=== PATIENT | female | born 1980 | race Caucasian/White ===

== ENCOUNTER → 2020-02-07 11:11 | Outpatient (BNVA) | payer OTHER, SELFPAY | PROVIDERS: Family Provider Family Medicine; Visit Provider Nurse Practitioner Women's Health | DX: Z01.419 Encounter for gynecological examination (general) (routine) without abnormal findings (principal); F41.9 Anxiety disorder, unspecified; Z13.0 Encounter for screening for diseases of the blood and blood-forming organs and certain disorders involving the immune mechanism | CPT/HCPCS: 85025 ==

== ENCOUNTER 2020-03-22 07:16 | Outpatient (CLI) | payer OTHER, SELFPAY ==
--- NOTE | 2020-03-22 07:38 | MM_ITS ---
WS: [id number] Bilateral screening digital mammogram, 03/22/2020 Clinical Data: SCREENING Comparison: 12/09/2018, 12/11/2014. Findings: The breast parenchymal pattern shows heterogeneous density in the augmentation mammoplasty implants a re intact. No spiculated masses or clustered calcifications are seen. There are no secondary signs of carcinoma. MM/[place] [id number] Impression: 1. Negative bilateral mammogram unchanged. 2. Recommend annual screening mammograms. BIRADS: 2-Benign FOLLOW UP: 1 Year Follow-up The CAD billing checker was used.
== END 2020-03-22 07:17 | disposition home or self-care (01) ==
LOC: RADSHAW 07:19
PROVIDERS: PCP Family Medicine; Visit Provider Nurse Practitioner Women's Health
DX: Z12.31 Encounter for screening mammogram for malignant neoplasm of breast (principal)
CPT/HCPCS: 77067

== ENCOUNTER → 2020-04-06 08:13 | Outpatient (BNVA) | payer OTHER, SELFPAY | PROVIDERS: PCP Family Medicine; Visit Provider Nurse Practitioner Women's Health | DX: Z13.29 Encounter for screening for other suspected endocrine disorder | CPT/HCPCS: 84443 ==

== ENCOUNTER → 2021-02-08 10:01 | Outpatient (BNVA) | payer OTHER, SELFPAY | PROVIDERS: PCP Family Medicine; Visit Provider Nurse Practitioner Women's Health | DX: Z01.419 Encounter for gynecological examination (general) (routine) without abnormal findings (principal); Z13.0 Encounter for screening for diseases of the blood and blood-forming organs and certain disorders involving the immune mechanism; Z11.3 Encounter for screening for infections with a predominantly sexual mode of transmission; Z13.1 Encounter for screening for diabetes mellitus; Z13.228 Encounter for screening for other metabolic disorders; Z12.39 Encounter for other screening for malignant neoplasm of breast | CPT/HCPCS: 80053; 83036; 85025; 86592; 86803; 87491; 87591; 87661; 87806; 88175 ==

== ENCOUNTER 2021-03-25 11:09 | Outpatient (CLI) | payer OTHER, SELFPAY ==
--- NOTE | 2021-03-25 11:30 | MM_ITS ---
WS: [id number] BILATERAL SCREENING MAMMOGRAM WITH YAN DISPLACEMENT VIEWS. CAD PERFORMED. HISTORY: Z12.39 - Encounter for other screening for malignant neoplasm COMPARISON: 03/22/2020 Bilateral craniocaudal and mediolateral like views are performed. Yan displacement views in CC and MLO projection also performed. Breasts composition: The breasts are heterogeneously dense, which may obscure small masses. No masses or calcifications. Retropectoral implants are intact. MM/[place] [id number] IMPRESSION: BI-RADS: 2-Benign FOLLOW-UP: 1 Year Follow-up
== END 2021-03-25 11:10 | disposition home or self-care (01) ==
LOC: RADSHAW 11:12
PROVIDERS: PCP Family Medicine; Visit Provider Nurse Practitioner Women's Health
DX: Z12.31 Encounter for screening mammogram for malignant neoplasm of breast (principal)
CPT/HCPCS: 77067

== ENCOUNTER → 2022-05-27 09:06 | Outpatient (BNVA) | payer OTHER, SELFPAY | PROVIDERS: PCP Family Medicine; Visit Provider Nurse Practitioner Women's Health | DX: Z01.419 Encounter for gynecological examination (general) (routine) without abnormal findings (principal); R00.2 Palpitations; Z12.4 Encounter for screening for malignant neoplasm of cervix; Z13.0 Encounter for screening for diseases of the blood and blood-forming organs and certain disorders involving the immune mechanism; Z13.228 Encounter for screening for other metabolic disorders; Z13.220 Encounter for screening for lipoid disorders; Z13.1 Encounter for screening for diabetes mellitus | CPT/HCPCS: 80053; 80061; 83036; 84439; 84443; 85025; 87624 ==

== ENCOUNTER 2022-07-10 11:50 | Outpatient (CLI) | payer OTHER, SELFPAY ==
--- NOTE | 2022-07-10 12:01 | MM_ITS ---
WS: [id number] BILATERAL 3D TOMOSYNTHESIS DIGITAL SCREENING MAMMOGRAM WITH CAD CLINICAL INFORMATION: Z12.39 - Encounter for other screening for malignant neop... HISTORY: Screening mammogram. No current complaints. COMPARISON: March 25, 2021 TECHNIQUE: Bilateral CC and MLO. FINDINGS: Stable bilateral retropectoral breast implants. The breast are composed of extremely dense tissue, which can limit the detection of small underlying mass lesions. No suspicious focal mass, asymmetry, calcifications, or architectural distortion. No ev idence of malignancy. Vascular calcification. MM/[place] [id number] IMPRESSION: BI-RADS: 2-Benign FOLLOW UP: 1 Year Follow-up Recommend return to annual screening mammography.
== END 2022-07-10 11:51 | disposition home or self-care (01) ==
LOC: RAD 11:51
PROVIDERS: PCP Family Medicine; Visit Provider Nurse Practitioner Women's Health
DX: Z12.31 Encounter for screening mammogram for malignant neoplasm of breast (principal)
CPT/HCPCS: 77063; 77067

== ENCOUNTER 2022-12-09 06:54 | Outpatient (CLI) | payer OTHER, SELFPAY ==
--- NOTE | 2022-12-09 07:00 | USCV_ITS ---
Bernarda Kerr Age: 42 Gender: F : 1980 Exam Date: 12/09/2022 07:09 Ordering Phys: Chelsie Gambino MD ([email or web address]) Technologist: CT Exam Location: [facility] Indication: murmur BP: 116 / 76 HR: 72 Rhythm: Sinus Technical Quality: Adequate MEASUREMENTS (Male / Female) Normal Values 2D ECHO LV Diastolic Diameter PLAX 4.7 cm 4.2 - 5.9 / 3.9 - 5.3 cm LV Systolic Diameter PLAX 3.1 cm IVS Diastolic Thickness 0.7 cm 0.6 - 1.0 / 0.6 - 0.9 cm IVS Systolic Thickness 0.8 cm LVPW Diastolic Thickness 0.8 cm 0.6 - 1.0 / 0.6 - 0.9 cm LVPW Systolic Thickness 1.6 cm LV Ejection Fraction 2D Teich 62.5 % LV Ejection Fraction MOD 2C 55.8 % LV Ejection Fraction 2C AL 57.4 % LA Diameter 3.2 cm Aorta at Sinotubular Diameter 2.6 cm IVC Diameter 2.0 cm M-MODE Aortic Annulus Diameter 2.9 cm LA Ao Ratio MM 1.2 MV E Point Septal Separation 0.3 cm DOPPLER AV Peak Velocity 139.0 cm/s LVOT Peak Velocity 77.3 cm/s MV Peak Velocity 108.0 cm/s MV Area PHT 3.0 cm squared Mitral E to A Ratio 2.2 MV E' Velocity 56.5 cm/s Mitral E to MV E' Ratio 5.2 Mitral E to LV E' Lateral Ratio 4.6 Mitral E to LV E' Septal Ratio 6.0 TR Peak Velocity 99.0 cm/s TR Peak Gradient 3.9 mmHg TV Peak E Velocity 76.0 cm/s Right Atrial Pressure 3.0 mmHg Pulmonary Artery Systolic Pressu 6.9 mmHg PV Peak Velocity 100.0 cm/s FINDINGS Left Ventricle Normal left ventricular size and systolic function, EF 55 %. No regional wall motion abnormalities. Right Ventricle The right ventricle is normal in size and function. Right Atrium The right atrium is normal in size. Left Atrium The left atrium is normal in size. Mitral Valve Trace mitral valve regurgitation. Aortic Valve No gross abnormalities noted Tricuspid Valve Trace to mild tricuspid valve regurgitation. Pulmonic Valve No gross abnormalities noted Pericardium Normal pericardium without effusion. Aorta Normal ascending aorta dimension. IVC The inferior vena cava appears normal. CONCLUSIONS Normal left ventricular size and systolic function, EF 55 %. No regional wall motion abnormalities. Trace to mild tricuspid valve regurgitation. Trace mitral valve regurgitation. There is no pericardial effusion. There are no intracardiac masses. No intracardiac shunts by color-flow Doppler examination No similar previous studies are available for comparison Dr Chelsie Gambino MD FAC (Electronically Signed) Final Date: 15 Dec 2022 09:16 S
== END 2022-12-09 06:55 | disposition home or self-care (01) ==
LOC: RAD 07:02
PROVIDERS: PCP Family Medicine; Visit Provider Internal Medicine Cardiovascular Disease
DX: R06.09 Other forms of dyspnea (principal)
CPT/HCPCS: 93306

== ENCOUNTER → 2023-06-29 15:30 | Outpatient (BNVA) | payer OTHER, SELFPAY | PROVIDERS: PCP Family Medicine; Visit Provider Nurse Practitioner Women's Health | DX: Z01.419 Encounter for gynecological examination (general) (routine) without abnormal findings (principal); N95.1 Menopausal and female climacteric states; Z13.0 Encounter for screening for diseases of the blood and blood-forming organs and certain disorders involving the immune mechanism; Z13.1 Encounter for screening for diabetes mellitus; Z13.29 Encounter for screening for other suspected endocrine disorder; Z13.228 Encounter for screening for other metabolic disorders; Z12.11 Encounter for screening for malignant neoplasm of colon | CPT/HCPCS: 80053; 82306; 83036; 84443; 85025 ==

== ENCOUNTER 2023-07-17 07:48 | Outpatient (CLI) | payer OTHER, SELFPAY ==
--- NOTE | 2023-07-17 08:03 | MM_ITS ---
WS: [id number] BILATERAL SCREENING DIGITAL BREAST MAMMOGRAPHY WITH YAN DISPLACEMENT VIEWS. CAD PERFORMED. HISTORY: SCREEN COMPARISON: 07/10/2022, 03/25/2021 Bilateral craniocaudal and mediolateral oblique views are performed with tomosynthesis and SM. Yan displacement views in CC and MLO projection also performed. Breasts composition: The breasts are extremely dense, which lowers the sensitivity of mammography. N o suspicious masses or calcifications. There is a lymph node along the superior LEFT breast implant. IMPRESSION: MM/[place] [id number] BI-RADS: 2-Benign FOLLOW-UP: 1 Year Follow-up
== END 2023-07-17 07:49 | disposition home or self-care (01) ==
LOC: RAD 07:48
PROVIDERS: PCP Family Medicine; Visit Provider Nurse Practitioner Women's Health
DX: Z12.31 Encounter for screening mammogram for malignant neoplasm of breast (principal)
CPT/HCPCS: 77063; 77067

== ENCOUNTER 2023-08-12 07:42 | Day surgery (SDC) | payer OTHER, SELFPAY ==
[2023-08-12 07:55] VITALS: BP 107/78; PULSE 78; RESP 18; TEMP 36.2; O2SAT 100
[2023-08-12] MEDS: sodium chloride 0.9% 1,000 ML 30 ML IV (08:08)
--- NOTE | 2023-08-12 08:11 | ANES.PREANE2 ---
Pre-Anesthetic Assessment Height/Weight: Height 1.68 m Weight 68.039 kg Temp Pulse Resp BP Pulse Ox 97.1 F L 78 18 107/78 100 08/12/23 07:55 08/12/23 07:55 08/12/23 07:55 08/12/23 07:55 08/12/23 07:55 Preop Diagnosis: screening Operation Date: 08/12/23 08:45 Proposed Procedures p [id number] colon [id number] screen colon a risk Z12.11(Not Applicable) - Gabe Cruz DO Familial anesthetic complications: none Was Beta Brendan taken within 24 hours: N/A Was Clonidine taken within 24 hours: N/A Last intake: Intake Last Liquid Date 08/11/23 Last Liquid Time 20:00 Last Solid Date 08/10/23 Last Solid Time 14:00 Social No alcohol and No tobacco Exam alert, oriented x 3 and regular rate & rhythm Airway Submandibular: within normal limits Mallampati: Class II Dentition: full History/ROS No significant history except as noted Pulmonary None reported CV/HEM Murmur trace mitral and tricuspid regurg None reported Hepatic None reported GI None reported Metabolic None reported Musc/skel None reported Neuropsych None reported Anesthetic Plan ASA status: 2 Anesthesia: Anesthesia Evaluation and MAC Risk of > 500 ml blood loss (7ml/kg in children): No Medications/Allergies Home Medications Medication Instructions Recorded Confirmed Last Taken Type No Known Home Medications 08/11/23 08/11/23 Unknown History Allergies Allergy/AdvReac Type Severity Reaction Status Date / Time No Known Allergies Allergy Verified 08/12/23 07:53 Current Medications Generic Name Dose Route Start Last Admin Trade Name Freq PRN Reason Stop Dose Admin Sodium Chloride 1,000 mls @ 30 mls/hr 08/12/23 07:45 08/12/23 08:08 Sodium Chloride 0.9% IV 08/13/23 07:44 30 mls/hr .Q24H NAKUL Administration PFSH Anesthesia Medical History No pertinent past medical history neghx: htn,dm,thyroid,dvt/pe PCP: Dr. Branch Interstitial cystitis Surgical History Status post surgical removal of neoplasm of skin (~2011) right foot-- benign H/O breast augmentation (~2007) Family History Denies family history of Colon cancer Ovarian cancer Diabetes Heart disease Hyperlipidemia Breast cancer Family history of thyroid problem Hypertension Uterine cancer Stroke Social History Smoking and tobacco/nicotine status: never used tobacco/nicotine Data Anesthesia Cardiac Studies: Echocardiogram 12/09/22
--- NOTE | 2023-08-12 09:14 | P.HP_ITS ---
Providers/Chief Complaint Primary Care Provider: Abdi Branch MD Chief Complaint: Z12.11 History of Present Illness Bernarda Kerr is a 43 year old female Review of Systems 2 General: Reports: 10 or more systems reviewed and unremarkable except in HPI and below Medications/Allergies Home Medications Medication Instructions Recorded Confirmed Last Taken Type No Known Home Medications 08/11/23 08/11/23 Unknown History Allergies Allergy/AdvReac Type Severity Reaction Status Date / Time No Known Allergies Allergy Verified 08/12/23 07:53 PFSH Acute PFSH: Medical History No pertinent past medical history neghx: htn,dm,thyroid,dvt/pe PCP: Dr. Branch Interstitial cystitis Surgical History Status post surgical removal of neoplasm of skin (~2011) right foot-- benign H/O breast augmentation (~2007) Family History Denies family history of Colon cancer Ovarian cancer Diabetes Heart disease Hyperlipidemia Breast cancer Family history of thyroid problem Hypertension Uterine cancer Stroke Social History Smoking and tobacco/nicotine status: never used tobacco/nicotine Vitals/I&O/Wt Last Vital Signs Temp 97.1 F L 08/12/23 07:55 Pulse 78 08/12/23 07:55 Resp 18 08/12/23 07:55 BP 107/78 08/12/23 07:55 Pulse Ox 100 08/12/23 07:55 Weight last 48 hrs Weight 150 lb A&P Assessment and plan (1) Colon cancer screening: Plan Colonoscopy Attestations Medical Necessity Statement*: Home Coding Level of Care Code Acute Code for Chg Fwd Diagnoses Colon cancer screening Z12.11
[2023-08-12 09:44] VITALS: BP 97/67; PULSE 84; RESP 16; TEMP 36.1; O2SAT 98
[2023-08-12 09:56] VITALS: BP 106/71; PULSE 81; RESP 16; O2SAT 99
--- NOTE | 2023-08-12 16:34 | ANE.PACU2 ---
Inpatient post-anesthesia follow up: Airway intact: Yes Vital signs: Temperature 97.0 F Pulse Rate 81 Respiratory Rate 16 Blood Pressure 106/71 Pulse Oximetry 99 Oxygen Delivery Me thod Room Air Oxygen Flow Rate Fraction of Inspir ed Oxygen Hydration adequate: Yes Nausea and vomiting: No Pain level: 2 Mental status: Baseline
== END 2023-08-12 10:22 | disposition home or self-care (01) ==
PROVIDERS: PCP Family Medicine; Visit Provider Surgery
PROC: 0DJD8ZZ Inspection of Lower Intestinal Tract, Via Natural or Artificial Opening Endoscopic (ICD-10-PCS; CPT 45378; principal; 2023-08-12 08:45)
DX: Z12.11 Encounter for screening for malignant neoplasm of colon (principal)
CPT/HCPCS: 45378; 81025; J2704; J7030

== ENCOUNTER → 2024-09-06 10:26 | Outpatient (BNVA) | payer OTHER, SELFPAY | PROVIDERS: PCP Family Medicine; Visit Provider Nurse Practitioner Women's Health | DX: Z01.419 Encounter for gynecological examination (general) (routine) without abnormal findings (principal); Z13.21 Encounter for screening for nutritional disorder; Z13.0 Encounter for screening for diseases of the blood and blood-forming organs and certain disorders involving the immune mechanism; Z13.228 Encounter for screening for other metabolic disorders; Z13.1 Encounter for screening for diabetes mellitus; Z13.220 Encounter for screening for lipoid disorders; N95.1 Menopausal and female climacteric states; I34.0 Nonrheumatic mitral (valve) insufficiency | CPT/HCPCS: 80053; 80061; 82306; 83036; 85025; 88175 ==

== ENCOUNTER 2024-09-20 08:25 | Outpatient (CLI) | payer OTHER, SELFPAY ==
--- NOTE | 2024-09-20 08:40 | MM_ITS ---
WS: [id number] BILATERAL 3D TOMOSYNTHESIS DIGITAL SCREENING MAMMOGRAM WITH CAD CLINICAL INFORMATION: Z12.31 - Encounter for screening mammogram for malignant ... HISTORY: Screening mammogram. No current complaints. COMPARISON: 07/17/2023 TECHNIQUE: Bilateral CC and MLO. FINDINGS: Bilateral breast implants are intact. The breast are composed of extremely dense tissue, which can limit the detection of small underlying mass lesions. No suspicious focal mass, asymmetry, calcifications, or architectural distortion. No evidence of malignancy. Vascular calcification MM/MM [facility] tomosynthesis [id number] IMPRESSION: DENSITY: The breasts are extremely dense, which lowers the sensitivity of mammo graphy. BI-RADS: 2 - Benign FOLLOW UP: 1 Year Follow-up Recommend return to annual screening mammography.
== END 2024-09-20 08:26 | disposition home or self-care (01) ==
PROVIDERS: PCP Family Medicine; Visit Provider Nurse Practitioner Women's Health
DX: Z12.31 Encounter for screening mammogram for malignant neoplasm of breast (principal); Z98.82 Breast implant status; R92.343 Mammographic extreme density, bilateral breasts; R92.1 Mammographic calcification found on diagnostic imaging of breast
CPT/HCPCS: 77063; 77067

== ENCOUNTER 2024-10-13 08:19 | Outpatient (CLI) | payer OTHER, SELFPAY ==
--- NOTE | 2024-10-13 08:27 | MR_ITS ---
WS: [id number] MRI LUMBAR SPINE NONCONTRAST TECHNIQUE: Sagittal T1, T2 and STIR imaging. Axial T1 and T2 imaging. CLINICAL INFORMATION: RADICULOPATHY, LUMBAR REGION/LOW BACK PAIN/PAIN IN LEFT HIP COMPARISON: None. FINDINGS: Mild lumbar curve. No acute compression. Disc bulging worse at L3-4 with central disc protrusion. Disc desiccation worse at L4-5. No acute compression fractures. L1-L2: Normal. L2-L3: Mild annular bulging. Slight narrowing of the LEFT greater than RIGHT subarticular recess. Mild facet arthropathy. L3-L4: RIGHT paracentral protrusion. Impingement RIGHT subarticular recess and traversing RIGHT L4 nerve root. Mild central canal stenosis. Mild facet arthropathy. Foramen are patent. L4-L5: Mild annular bulging. Moderate facet arthropathy. Disc desiccation. Mild LEFT foraminal narrowing. L5-S1: Shallow central disc bulging. Mild facet arthropathy. Spinal canal and foramen are patent. Visualized pelvic bony structures: Normal. Paravertebral soft tissues: Normal. Central disc protrusions in the cervical spine on plumber apprentice imaging with indentation of the cervical cord at C5-C6 and C6-C7. Disc be further evaluated with cervical spine MRI. MR/MR lumbar spine wo con* [id number] IMPRESSION: 1. RIGHT paracentral protrusion L3-4 impinges the traversing RIGHT L4 nerve ro ot in the subarticular recess. Mild central canal stenosis. 2. LEFT eccentric disc bulging L4-5 with mild LEFT foraminal narrowing. Small LEFT foraminal protrusion. 3. Annular bulging L2-3 with narrowing of the LEFT subarticular recess. 4. Tiny shallow central protrusion L5-S1. 5. Disc protrusions in the cervical spine with slight indentation of the cervi juan josé cord at C5-C6 and C6-C7. This could be further evaluated with cervical spin e MRI.
--- NOTE | 2024-10-13 08:27 | XR_ITS ---
WS: [id number] XR lumbar spine f/e only [id number] REASON FOR EXAM: LOW BACK PAIN/PAIN IN L HIP/RADICULOPATHY, LUMBAR REGION FINDINGS: No vertebral body abnormality. Moderate narrowing of the L4-L5 disc space. No significant neutral listhesis. No significant vertebral body movement with flexion or extension. XR/XR lumbar spine f/e only [id number] IMPRESSION: Degenerative spondylosis as above.
== END 2024-10-13 08:20 | disposition home or self-care (01) ==
PROVIDERS: PCP Family Medicine; Visit Provider Registered Nurse
DX: M54.16 Radiculopathy, lumbar region (principal); M25.552 Pain in left hip; M47.896 Other spondylosis, lumbar region; M51.26 Other intervertebral disc displacement, lumbar region; M48.061 Spinal stenosis, lumbar region without neurogenic claudication; R93.7 Abnormal findings on diagnostic imaging of other parts of musculoskeletal system; M51.369 Other intervertebral disc degeneration, lumbar region without mention of lumbar back pain or lower extremity pain; M50.222 Other cervical disc displacement at C5-C6 level; M50.223 Other cervical disc displacement at C6-C7 level; M43.8X6 Other specified deforming dorsopathies, lumbar region; M47.897 Other spondylosis, lumbosacral region
CPT/HCPCS: 72120; 72148

== ENCOUNTER 2024-11-10 06:15 | Outpatient (CLI) | payer OTHER, SELFPAY ==
--- NOTE | 2024-11-10 06:29 | MR_ITS ---
WS: [id number] MRI PELVIS WITHOUT GADOLINIUM ENHANCEMENT INDICATION: Low back pain TECHNIQUE: Coronal T1 and STIR axial T1 axial T2 sagittal T2 fat-sat FINDINGS: Normal bone marrow signal in the sacrum and bony pelvis. Small subchondral degenerative cyst RIGHT ilium adjacent to the sacroiliac joint. Normal bone marrow signal in the femoral heads and femoral necks. Normal pubic rami. Normal sacrococcygeal junction. Anteverted uterus. Multi follicular o varies bilaterally. Dominant left-sided follicle measuring 10 mm. Bladder is normal in appearance. LEFT hip is normal in appearance. Normal pubic rami. MR/MR pelvis wo con* [id number] IMPRESSION: No acute pelvic findings
[2024-11-10 07:39] LABS: Erythrocyte Sedimentation Rate 1 mm/hr (0-15)
[2024-11-14 07:55] LABS: Anti-Nuclear Antibody Screen NEGATIVE (NEGATIVE)
== END 2024-11-10 06:16 | disposition home or self-care (01) ==
PROVIDERS: PCP Family Medicine; Visit Provider Student in an Organized Health Care Education/Training Program
DX: M79.18 Myalgia, other site (principal); M54.50 Low back pain, unspecified; Z01.89 Encounter for other specified special examinations; R93.89 Abnormal findings on diagnostic imaging of other specified body structures
CPT/HCPCS: 36415; 72195; 85651; 86038; 86140; 86431

== ENCOUNTER → 2024-11-15 12:16 | Outpatient (BNVA) | payer OTHER, SELFPAY | PROVIDERS: PCP Family Medicine; Visit Provider Nurse Practitioner Women's Health | DX: R87.619 Unspecified abnormal cytological findings in specimens from cervix uteri (principal) | CPT/HCPCS: 87624 ==

== ENCOUNTER → 2025-01-17 08:49 | Outpatient (BNVA) | payer OTHER, SELFPAY | PROVIDERS: PCP Family Medicine; Visit Provider Nurse Practitioner Women's Health | DX: N95.1 Menopausal and female climacteric states (principal) | CPT/HCPCS: 80061; 82306 ==